=== PATIENT | male | born 1960 | race Caucasian/White ===

== ENCOUNTER 2019-08-19 10:25 | Inpatient (IN) | payer BC ==
[~2019-08-19] VITALS: Ht 167.6 cm; Wt 64.4 kg
[2019-08-19 08:00] VITALS: BP 90/71
[2019-08-19 11:58] VITALS: BP 90/71
--- NOTE | 2019-08-19 11:58 | NUR ---
TELE/RN NOTES RECEIVED PATIENT FROM [facility]. PATIENT WAS BIB 2 EMT ON A GURNEY. PATIENT ABLE TO AMBULATE AND TRANSFER TO BED BY HIMSELF. GAIT IS STEADY. PATIENT IS AWAKE, ALERT AND ORIENTED X4. NO PAIN OR ACUTE DISTRESS AT THIS TIME. RESPIRATION EVEN AND UNLABORED. PATIENT IS NOTED WITH IV ACCESS ON RAC #20G. INTACT AND PATENT. FLUSHING WELL. NO S/S OF INFECTION OR INFILTRATION. ACCORDING TO EMT PATIENT RECEIVED ASPIRIN AND PLAVIX BACK IN [facility]. ALL NEEDS ANTICIPATED. CALL LIGHT WITHIN REACHED. SAFETY MAINTAINED. BED LOCKED AND IN LOWEST POSITION. WILL CONTINUE TO MONITOR.
[2019-08-19] MEDS ORDERED: FEXO180T94 PO (12:15)
[2019-08-19] MEDS ORDERED: ASPI1TAB32 PO (12:15)
[2019-08-19] MEDS ORDERED: ZOLP10TA6 PO (12:15)
[2019-08-19] MEDS ORDERED: ALBU8.5H8 IH (12:15)
[2019-08-19] MEDS ORDERED: MONT10TA22 PO (12:15)
[2019-08-19] MEDS ORDERED: TAMS-12 PO (12:15)
[2019-08-19] MEDS ORDERED: FLUT1BLS INH (12:15)
--- NOTE | 2019-08-19 13:06 | NUR ---
TELE/RN NOTES INFORMED MATT MANCILLA IN PERSON THAT HER PATIENT ARRIVED IN THE UNIT AND AWAITING FOR ADMITTING ORDERS.
[2019-08-19] MEDS ORDERED: ACETAMINOPHEN 325 MG TABLET PO PRN (13:30)
[2019-08-19] MEDS ORDERED: MAG HYDROX/AL HYDROX/SIMETH 30 ML UDC PO PRN (13:30)
[2019-08-19] MEDS: IV NS 0.9% 1,000 ML IV SCH (14:17)
[2019-08-19 14:55] LABS: BASOPHILS % (AUTO) 0.7 % (0.0-2.0); EOSINOPHILS % (AUTO) 0.3 % (0.0-6.0); HEMATOCRIT 40 % (39-51); HEMOGLOBIN 13.4 g/dL (13.5-17.5); LYMPHOCYTES # (AUTO) 0.8 /CMM (0.8-4.8); LYMPHOCYTES % (AUTO) 12.2 % (20.0-44.0); MEAN CORPUSCULAR HGB CONC 34 g/dl (31.0-36.0); MEAN CORPUSCULAR VOLUME 89 fL (80-96); MONOCYTES # (AUTO) 0.4 /CMM (0.1-1.30); MONOCYTES % (AUTO) 5.6 % (2.0-12.0); NEUTROPHILS # (AUTO) 5.6 /CMM (1.8-8.9); NEUTROPHILS % (AUTO) 81.2 % (43.0-81.0); PLATELET COUNT (AUTO) 241 /CMM (150-450); RED BLOOD CELL COUNT(AUTO) 4.45 MIL/uL (4.5-6.0)
[2019-08-19 15:20] LABS: ALBUMIN 3.8 g/dL (3.4-5.0); BILIRUBIN,TOTAL 0.5 mg/dL (0.2-1.0); CALCIUM, SERUM 8.8 mg/dL (8.5-10.1); CREATININE 0.9 mg/dL (0.6-1.3); PHOSPHORUS 3.5 mg/dL (2.5-4.9); POTASSIUM 4.3 mmol/L (3.5-5.1); THYROID STIMULATING HORMONE 2.571 uIU/mL (0.358-3.74); TOTAL PROTEIN, SERUM 6.3 g/dL (6.4-8.2)
[2019-08-19 16:00] VITALS: BP 113/65
[2019-08-19] MEDS: LORATADINE 10 MG TABLET PO SCH (16:53)
[2019-08-19] MEDS: ENOXAPARIN SODIUM 40 MG/0.4 ML DISP.SYRIN SQ SCH (16:54)
[2019-08-19] MEDS: BLOOD SUGAR DIAGNOSTIC 1 EACH STRIP IN SCH ×2 (17:01→22:30)
[2019-08-19] MEDS ORDERED: BLOOD SUGAR DIAGNOSTIC 1 EACH STRIP IN SCH (18:00)
[2019-08-19] MEDS ORDERED: ALBUTEROL FS 2.5 MG/0.5 ML VIAL.NEB NEB PRN ×2 (19:00→19:30)
--- NOTE | 2019-08-19 19:30 | NUR ---
FLOORING MACHINE FEEDER NOTE PATIENT REPORT GIVEN BEDSIDE, PRESENT. PATIENT SITTING UP IN BED A/O X 4 NO S/S DISTRESS.PATIENT DENIES CHEST PAIN SOB, NO MOTOR SENSORY DEFICITS NOTED NO FACIAL DROOP. PATIENT DENIES ANY S/S OF ABNORMALITIES. PATIENT HAS 20 G RAC ON 75 ML PATENT AND INTACT NO S/S OF INFILTRATION AND INFECTION. SAFETY PRECAUTIONS IN PLACE. GOALS FOR SHIFT DISCUSSED WITH FAMILY AND PATIENT. BOTHER VERBALIZE UNDERSTANDING. CALL LIGHT WITHIN REACH BED IN LOWEST LOCKED POSITION. RN WILL CONTINUE TO [place] FOR CHANGES AND DO MULTIPLE NEURO CHECKS.
--- NOTE | 2019-08-19 19:34 | NUR ---
TELE/RN CLOSING NOTES PATIENT CONTINUES TO REMAIN IN STABLE CONDITION THROUGHOUT THE SHIFT. PROVIDED COMFORT AND SAFETY. PATIENT IS NOTED WITH IV ACCESS ON RAC #20G. INTACT AND PATENT. FLUSHING WELL. NO S/S OF INFECTION OR INFILTRATION. ALL NEEDS ANTICIPATED. CALL LIGHT WITHIN REACHED. SAFETY MAINTAINED. BED LOCKED AND IN LOWEST POSITION. WILL CONTINUE TO MONITOR. ENDORSED TO PM NURSE FOR MELONIE.
[2019-08-19 20:00] VITALS: BP 115/70
--- NOTE | 2019-08-19 20:17 | NUR ---
TEXTED DR. BRIONES FOR MRI APPROVAL
[2019-08-19] MEDS: SIMVASTATIN 20 MG TABLET PO SCH ×2 (22:00→22:07)
[2019-08-19] MEDS: ZOLPIDEM TARTRATE 10 MG TABLET PO SCH (22:07)
[2019-08-19] MEDS: TAMSULOSIN 0.4 MG CAP.SR.24H PO SCH (22:07)
[2019-08-19] MEDS: MONTELUKAST SODIUM (10MG) 10 MG TABLET PO SCH (22:07)
--- NOTE | 2019-08-19 23:44 | NUR ---
NEON ELECTRICIAN NOTE PATIENT REFUSES IV FLUIDS AT THIS TIME. PATIENT WANTS TO SLEEP UNDISTURBED WITHOUT HAVING TO WAKE UP AND GO TO THE BATHROOM. RN ENCOURAGED ORAL INTAKE OF FLUIDS. IV FLUIDS HELD AT THIS TIME.
[2019-08-20] VITALS: BP 111/69
[2019-08-20] MEDS: IV NS 0.9% 1,000 ML IV SCH ×2 (03:28→19:00)
[2019-08-20 04:00] VITALS: BP 117/66
[2019-08-20 06:30] LABS: BASOPHILS # (AUTO) 0.1 /CMM (0.0-0.2); BASOPHILS % (AUTO) 1.2 % (0.0-2.0); EOSINOPHILS % (AUTO) 5.9 % (0.0-6.0); HEMATOCRIT 38 % (39-51); HEMOGLOBIN 12.6 g/dL (13.5-17.5); LYMPHOCYTES # (AUTO) 1.1 /CMM (0.8-4.8); LYMPHOCYTES % (AUTO) 23.3 % (20.0-44.0); MEAN CORPUSCULAR HGB CONC 34 g/dl (31.0-36.0); MEAN CORPUSCULAR VOLUME 89 fL (80-96); MONOCYTES # (AUTO) 0.4 /CMM (0.1-1.30); MONOCYTES % (AUTO) 7.8 % (2.0-12.0); NEUTROPHILS # (AUTO) 2.9 /CMM (1.8-8.9); NEUTROPHILS % (AUTO) 61.8 % (43.0-81.0); PLATELET COUNT (AUTO) 217 /CMM (150-450); WHITE BLOOD COUNT (AUTO) 4.8 K/uL (4.3-11.0)
[2019-08-20 06:38] LABS: CALCIUM, SERUM 8.6 mg/dL (8.5-10.1); CREATININE 0.9 mg/dL (0.6-1.3); MAGNESIUM 1.8 mg/dL (1.8-2.4); PHOSPHORUS 3.6 mg/dL (2.5-4.9); POTASSIUM 4.1 mmol/L (3.5-5.1)
[2019-08-20 06:39] LABS: APPEARANCE,URINE CLEAR (CLEAR); BILIRUBIN,URINE NEGATIVE (NEGATIVE); BLOOD, URINE NEGATIVE Ery/uL (NEGATIVE); COLOR,URINE YELLOW (YELLOW); KETONES,URINE NEGATIVE (NEGATIVE); LEUKOCYTE ESTERASE ,URINE NEGATIVE (NEGATIVE); NITRITE, URINE NEGATIVE (NEGATIVE); PROTEIN,URINE NEGATIVE (NEGATIVE); UGLUCOSE NEGATIVE (NEGATIVE); UROBILINOGEN,URINE 0.2 EU/dL (0.2)
--- NOTE | 2019-08-20 07:10 | NUR ---
DEPUTY DISTRICT CUSTOMS DIRECTOR OPENING NOTE RECEIVED REPORT FROM [facility] SHIFT NURSE. PT AWAKE IN BED, ALERT AND ORIENTED X 4, ON ROOM AIR, SATURATING WELL, RESPIRATIONS EASY AND UNLABORED, NO SIGNS OF RESPIRATORY DISTRESS NOTED. IV SITE ON RIGHT AC G20 PATENT, INFUSING NS AT 75ML/HR, NO SIGNS INFILTRATION. BED IN LOW POSITION, LOCKED, CALL LIGHT WITHIN REACH. INTRODUCED SELF TO PT AND PLAN OF CARE.
[2019-08-20] MEDS: PANTOPRAZOLE 40 MG TABLET.DR PO SCH ×2 (07:30→07:32)
[2019-08-20] MEDS: BLOOD SUGAR DIAGNOSTIC 1 EACH STRIP IN SCH ×4 (07:56→21:57)
[2019-08-20 08:00] VITALS: BP 128/71
--- NOTE | 2019-08-20 08:10 | NUR ---
PT REPORTS HE HAS ANXIETY AND CLAUSTROPHOBIA, REQUESTING XANAX BEFORE MRI. CALLED DR. MANCILLA THROUGH [employer] TO OBTAIN ORDERS.
[2019-08-20] MEDS: DOCUSATE SODIUM 100 MG CAPSULE PO SCH (08:15)
[2019-08-20] MEDS: LORATADINE 10 MG TABLET PO SCH (08:16)
[2019-08-20] MEDS: ASPIRIN EC 325 MG TABLET.DR PO SCH (08:16)
--- NOTE | 2019-08-20 09:10 | NUR ---
COMPLETED MRI CHECKLIST.
[2019-08-20] MEDS: MECLIZINE HCL 25 MG TABLET PO PRN (09:17)
[2019-08-20] MEDS ORDERED: LORAZEPAM INJ 2 MG/ML VIAL IV ONE ×2 (10:30→11:30)
[2019-08-20 12:00] VITALS: BP 135/72
[2019-08-20 16:00] VITALS: BP 116/68
[2019-08-20] MEDS ORDERED: GADOTERIDOL 279.3 MG/ML VIAL IV ONE (17:49)
--- NOTE | 2019-08-20 17:50 | NUR ---
PT ANXIOUS, VERBALIZING FRUSTRATION ABOUT NOT BEING SEEN BY A DOCTOR (NEURO DOCTOR) THROUGHOUT THE DAY, INQUIRING ABOUT HIS MRI RESULTS. SPOKE WITH DR. JACKSON OVER THE PHONE REGARDING MRI RESULTS. PER DR. JACKSON HE IS CLEARING THE PATIENT, BUT WOULD LIKE PT TO HAVE A FOLLOW UP WITH HIS TRANSFER COORDINATOR, PRIMARY CARE DOCTOR IN 2 WEEKS. PT NOTIFIED. PT CONTINUES TO BE UPSET AND ANXIOUS, WOULD LIKE TO BE SEEN BY CLAUDETTE MANCILLA, TOLD PT SHE WILL BE BACK TOMORROW TO MAKE ROUNDS. CHARGE NURSE DAVIN NOTIFIED. CHARGE NURSE JIN SPOKE WITH CLAUDETTE MANCILLA WHO DR. JACSKON AND HER RECOMMEND THE PT TO HAVE A NEUROSURGEON CONSULT. PT NOTIFIED AND AGREED TO WAIT TO BE SEEN BY NEUROSURGEON LATER TODAY.
--- NOTE | 2019-08-20 18:56 | NUR ---
REMOTE CONTROL MIRROR INSTALLER CLOSING NOTE PT AWAKE IN BED, ALERT AND ORIENTED X 4, ON ROOM AIR, SATURATING WELL, NO SIGNS OF RESPIRATORY DISTRESS NOTED. DENIES ANY PAIN AT THIS TIME. SINUS RHYTHM ON CONTINUING EDUCATION DIRECTOR. IV SITE ON RIGHT AC G20 WITH SALINE LOCK PATENT, INTACT. PROVIDED SAFETY AND COMFORT TO PT THROUGHOUT SHIFT, ALL DUE MEDS GIVEN. BED IN LOW POSITION, LOCKED, CALL LIGHT WITHIN REACH. WILL ENDORSE TO NOC SHIFT NURSE.
--- NOTE | 2019-08-20 19:15 | NUR ---
CHANGE OF SHIFT REPORT Patient in bed, awake A/O x4. Sinus Alfredito 57 in the Tele monitor. Tolerating RA. Patient feels frustrated and angry, wants to speak with MD and Neuro, per report patient wants to go home today but would like to speak with Neuro and Doctor first. Awaiting Neuro Dr. Halie Ambrose to see patient today. Patient denies chest pain or any discomfort. Ambulates independently.
[2019-08-20 20:00] VITALS: BP 119/72
[2019-08-20] MEDS: TAMSULOSIN 0.4 MG CAP.SR.24H PO SCH (21:07)
[2019-08-20] MEDS: MONTELUKAST SODIUM (10MG) 10 MG TABLET PO SCH (21:07)
[2019-08-20] MEDS: ENOXAPARIN SODIUM 40 MG/0.4 ML DISP.SYRIN SQ SCH (21:09)
[2019-08-20] MEDS: SIMVASTATIN 20 MG TABLET PO SCH (21:12)
[2019-08-20] MEDS: ZOLPIDEM TARTRATE 10 MG TABLET PO SCH (23:49)
--- NOTE | 2019-08-20 23:51 | NUR ---
AMBIEN DECREASE TO 5MG Patient is on Ambien 10mg HS, prefers to take low dose decrease to 5mg every night. Notified Dr. Jose Miller with new orders 5mg Ambien HS. Patient aware.
[2019-08-21] VITALS: BP 119/68
[2019-08-21 04:50] VITALS: BP 110/63
[2019-08-21] MEDS: IV NS 0.9% 1,000 ML IV SCH (06:00)
--- NOTE | 2019-08-21 06:40 | NUR ---
END OF SHIFT REPORT Patient in bed, stable oxygen saturation on RA. Sinus Alfredito in the Tele monitor. Neuro checks every 4 hours, extremities normal; PERRLA; speech clear; Hafsa coma scale score 15. Slept well with PRN Ambien, denies pain. Seen by Dr. Ambrose, with new order MRI Brain with Pituitary sequence, patient is aware.
--- NOTE | 2019-08-21 06:42 | NUR ---
IVF REFUSED Patient refused IVF infusion, education provided, still insist he is drinking enough water and its uncomfortable at night he will go the bathroom often to urinate.
[2019-08-21] MEDS: PANTOPRAZOLE 40 MG TABLET.DR PO SCH (07:30)
--- NOTE | 2019-08-21 07:34 | NUR ---
RN OPENING NOTES RECEIVED PATIENT RESTING IN BED COMFORTABLY, DENIES ANY PAIN OR DISCOMFORT AT THIS TIME. HE IS AOX4, VERBAL AND AMBULATORY. HE IS ON RA, SHOWS NO S/SX OF RESP DISTRESS OR SOB. SKIN IS INTACT. HE HAS A 20 G ON RAC, PATENT AND INTACT, PT IS REFUSING IV FLUIDS. HE IS SCHEDULED FOR AN MRI OF THE PAT TODAY, CONSENT FORM IS SIGNED. HE IS ON A CARDIAC DIET, TOLERATIGN WELL. SAFETY MEASURES HAVE BEEN IMPLEMENTED, BED IS IN LOWEST AND LOCKED POSITION, CALL LIGHT IS WITHIN REACH, SIDE RAILS UP X2, WILL CONTINUE TO MONITOR FOR ANY CHANGES
[2019-08-21 07:35] LABS: THYROID STIMULATING HORMONE 6.738 uIU/mL (0.358-3.74)
[2019-08-21] MEDS: BLOOD SUGAR DIAGNOSTIC 1 EACH STRIP IN SCH ×2 (07:58→12:00)
[2019-08-21 08:00] VITALS: BP 123/70
--- NOTE | 2019-08-21 08:30 | NUR ---
PT REFUSED CONTRAST FOR MRI OF THE BRAIN.
[2019-08-21] MEDS ORDERED: IV NS 0.9% 1,000 ML IV PRN (09:00)
[2019-08-21] MEDS: DOCUSATE SODIUM 100 MG CAPSULE PO SCH (09:15)
[2019-08-21] MEDS: ASPIRIN EC 325 MG TABLET.DR PO SCH (09:15)
[2019-08-21] MEDS: MECLIZINE HCL 25 MG TABLET PO PRN (09:15)
[2019-08-21] MEDS: LORATADINE 10 MG TABLET PO SCH (09:16)
[2019-08-21] MEDS ORDERED: LORAZEPAM INJ 2 MG/ML VIAL IV PRN (10:00)
--- NOTE | 2019-08-21 15:17 | NUR ---
WAITING FOR NEUROLOGY CONSULT TO GIVE FINAL OK FOR DC, WILL CONTINUE TO MONITOR
[2019-08-21 16:00] VITALS: BP 125/69
--- NOTE | 2019-08-21 18:00 | NUR ---
PATIENT HAS BEEN DISCHARGED. HE LEFT THE UNIT VIA WHEELCHAIR IN STABLE CONDITION, TOOK HIM HOME. IV SITE WAS REMOVED. EXIT CARE WAS UTILIZED DURING DISCHARGE. BELONGINGS LIST WAS CHECKED OFF. FOLLOW UP INSTRUCTIONS AND CONTACT INFO WAS PROVIDED TO THE PT AND HIS . CD COPY OF IMAGING WAS ALSO PROVIDED.
[2019-08-21] MEDS ORDERED: ZOLPIDEM TARTRATE 5 MG TABLET PO SCH (22:00)
[2019-08-22 08:06] LABS: FOLLICLE STIMULATION HORMONE 7.4 mIU/mL (1.5-12.4); LUTEINIZING HORMONE 8.4 mIU/mL (1.7-8.6)
== END 2019-08-21 17:50 | disposition home or self-care (01) | DRG 69 ==
LOC: TELE1 11:52 → MEDSG1 08-21 10:09
PROVIDERS: ADMIT Registered Nurse; ATTEND Registered Nurse
DX: G45.9 Transient cerebral ischemic attack, unspecified (principal); J45.909 Unspecified asthma, uncomplicated; R29.810 Facial weakness; F31.9 Bipolar disorder, unspecified; I95.9 Hypotension, unspecified; R42 Dizziness and giddiness; G43.909 Migraine, unspecified, not intractable, without status migrainosus; D35.2 Benign neoplasm of pituitary gland; C61 Malignant neoplasm of prostate; Z87.891 Personal history of nicotine dependence; E23.6 Other disorders of pituitary gland; R20.2 Paresthesia of skin; M54.12 Radiculopathy, cervical region
CPT/HCPCS: 36415; 70551-TC; 70553-TC; 80048-TC; 80053-TC; 80061-TC; 81000-TC; 82533; 82947-TC; 82962-TC; 83001; 83002; 83735-TC; 84100-TC; 84146; 84305; 84439-TC; 84443-TC; 85025-TC; 87081-TC; 92526; 92611-TC; 93307-TC; 93880-TC; 97116-TC; 97530-TC; A6253; A6403; A9579; G0378; J1650; J2060; J7030; J8597